=== PATIENT | female | born 1930 | race Two or more races ===

== ENCOUNTER 2018-12-02 19:23 | Emergency (ER) | payer OTHER, BC ==
[~2018-12-02] VITALS: Ht 170.2 cm; Wt 68.0 kg
== END 2018-12-02 23:21 | disposition home or self-care (01) ==
LOC: ER 19:23
DX: S00.11XA Contusion of right eyelid and periocular area, initial encounter (principal); S20.211A Contusion of right front wall of thorax, initial encounter; S40.011A Contusion of right shoulder, initial encounter; W18.09XA Striking against other object with subsequent fall, initial encounter; Y93.89 Activity, other specified; Y92.413 State road as the place of occurrence of the external cause; Y99.8 Other external cause status